=== PATIENT | male | born 1975 | race Caucasian/White ===

== ENCOUNTER 2020-02-13 06:54 | Emergency (ER) | payer OTHER ==
[~2020-02-13] VITALS: Ht 177.8 cm; Wt 90.9 kg
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
[2020-02-13] MEDS ORDERED: TETANUS,DIPTH,PERTUSS P/F (BOOSTRIX) 0.5 ML VIAL IM ONE (07:15)
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
[2020-02-13] MEDS ORDERED: HYDR-83 PO (08:09)
[2020-02-13 08:15] VITALS: BP 156/76
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
== END 2020-02-13 08:15 | disposition home or self-care (01) ==
LOC: ER 06:57
DX: S52.022A Displaced fracture of olecranon process without intraarticular extension of left ulna, initial encounter for closed fracture (principal); Z23 Encounter for immunization; X58.XXXA Exposure to other specified factors, initial encounter
CPT/HCPCS: 73080; 90715